=== PATIENT | male | born 1995 | race Caucasian/White ===

== ENCOUNTER 2020-08-09 02:22 | Emergency (ER) | payer BC, OTHER ==
[2020-08-09 02:26] VITALS: BP 129/84; PULSE 76; RESP 20; TEMP 97.5
--- NOTE | 2020-08-09 02:28 | ED ---
ENT HPI - General Chief complaint: ENT Stated complaint: FB RT ear Time Seen by Provider: 08/09/20 02:28 Source: patient, family Mode of arrival: ambulatory Limitations: no limitations - Related Data Home Medications Medication Instructions Recorded Confirmed ALPRAZolam [Xanax] 0.25 mg PO DAILY PRN 07/08/13 07/11/13 Naproxen [Naprosyn] 250 mg PO Q12HR 07/08/13 07/11/13 Ondansetron [Zofran] 4 mg PO Q8HR PRN 07/08/13 07/11/13 Previous Rx's Medication Instructions Recorded Docusate [Colace] 100 mg PO DAILY #30 capsule 07/08/13 Hydrocodone/Acetaminophen [[place] 1 each PO Q6HR PRN #30 tab 07/08/13 5-325] Amoxicillin/Potassium Clav 1 each PO Q12HR 7 Days tab 07/09/13 [Augmentin 875-125 Tablet] Allergies Allergy/AdvReac Type Severity Reaction Status Date / Time ibuprofen Allergy Swelling Verified 08/09/20 02:26 Review of Systems ROS Statement: Those systems with pertinent positive or pertinent negative responses have been documented in the HPI. ROS Other: All systems not noted in ROS Statement are negative. Past Medical History Additional Past Medical History / Comment(s): anxiety, angina vomiting syndrome, waldo danlos History of Any Multi-Drug Resistant Organisms: None Reported Past Surgical History: Appendectomy Past Psychological History: Anxiety Smoking Status: Never smoker Past Alcohol Use History: None Reported Past Drug Use History: None Reported General Exam Limitations: no limitations Course Vital Signs 08/09/20 02:22 Temperature 97.5 F L Pulse Rate 76 Respiratory 20 Rate Blood Pressure 129/84 O2 Sat by Pulse 98 Oximetry Disposition Clinical Impression: Foreign body in right ear Disposition: HOME SELF-CARE Condition: Good Instructions (If sedation given, give patient instructions): Ear Foreign Body (ED) Is patient prescribed a controlled substance at d/c from ED?: No Referrals: Alber Navarro MD [Primary Care Provider] - 1-2 days
== END 2020-08-09 02:40 | disposition home or self-care (01) ==
LOC: EC 02:22
DX: T16.1XXA Foreign body in right ear, initial encounter (principal); Z90.49 Acquired absence of other specified parts of digestive tract
CPT/HCPCS: 99282